=== PATIENT | male | born 1965 | race Caucasian/White ===

== ENCOUNTER → 2016-12-15 | Outpatient (CLI) | payer BC ==
[~2016-12-15] VITALS: Ht 180.3 cm; Wt 113.4 kg
[~2016-12-15] MED LIST: ATOR1TAB19 PO; BUSP10TA2; FLUO20CA8 PO; GLUC1000; GLYB25TA PO; LIDOCAINE 2% INJ 100 MG/5 ML SDV (FOR ANES.) As Ordered ONE; LIPI10TA; NS 1,000 ML IV SCH; PIOG45TA2 PO; PROPOFOL 500 MG/50 ML VIAL As Ordered ONE; PROZ40CA; RISP0.2515
--- NOTE | 2016-12-15 11:18 | ROOR ---
Patient Name: Junior Love Procedure Date: 12/15/2016 10:52 AM Date of : 1965 Age: 51 Room: MARANA02 Gender: Male Note Status: Finalized Procedure: Colonoscopy to Cecum Indications: Screening in patient at increased risk: Colorectal cancer in brother before age 60, Last colonoscopy: 2008 Providers: Wesley Sutton MD Referring MD: Horace Tariq MD Requesting Provider: Medicines: Monitored Anesthesia Care Complications: No immediate complications. Procedure: Pre-Anesthesia Assessment: - The heart rate, respiratory rate, oxygen saturations, blood pressure, adequacy of pulmonary ventilation, and response to care were monitored throughout the procedure. The Colonoscope was introduced through the anus and advanced to the cecum, identified by appendiceal orifice and ileocecal valve. The colonoscopy was performed without difficulty. The patient tolerated the procedure well. The quality of the bowel preparation was fair. Findings: The perianal and digital rectal examinations were normal. Non-bleeding internal hemorrhoids were found during retroflexion. The hemorrhoids were small and Grade I (internal hemorrhoids that do not prolapse). No other significant abnormalities were identified in a careful examination of the remainder of the colon. The exam was otherwise without abnormality on direct and retroflexion views. Impression: - Non-bleeding internal hemorrhoids. - The examination was otherwise normal on direct and retroflexion views. - No specimens collected. - The exam was otherwise normal to the cecum. Recommendation: - Patient has a contact number available for emergencies. The signs and symptoms of potential delayed complications were discussed with the patient. Return to normal activities tomorrow. Written discharge instructions were provided to the patient. - High fiber diet. - Discharge patient to home. - Continue present medications. - Repeat colonoscopy in 5 years for screening purposes. - Return to referring physician. - The findings and recommendations were discussed with the patient's family. Wesley Sutton MD Wesley Sutton MD 12/15/2016 11:18:23 AM This report has been signed electronically. Number of Addenda: 0 Note Initiated On: 12/15/2016 10:52 AM Estimated Blood Loss: Estimated blood loss: none.
[2016-12-15 11:45] VITALS: BP 123/65
== END | disposition home or self-care (01) ==
LOC: M OPP 09:52
PROVIDERS: ATTEND Internal Medicine Gastroenterology
DX: Z12.11 Encounter for screening for malignant neoplasm of colon (principal); Z80.0 Family history of malignant neoplasm of digestive organs; K64.0 First degree hemorrhoids; E11.9 Type 2 diabetes mellitus without complications; F33.9 Major depressive disorder, recurrent, unspecified; Z79.899 Other long term (current) drug therapy; Z79.84 Long term (current) use of oral hypoglycemic drugs

== ENCOUNTER 2018-07-18 15:30 | Emergency (ER) | payer BC ==
[2018-07-18] MEDS: NS 1,000 ML IV (16:34)
[2018-07-18] MEDS: KETOROLAC 30 MG/ML VIAL (J1885) IV (16:34)
[2018-07-18] MEDS: ONDANSETRON 4MG/2ML VIAL (J2405) IV (16:34)
[2018-07-18 16:45] LABS: BASO % 0.2 % (0.0-1.0); EOS % 0.1 % (0.0-3.0); HEMATOCRIT 42.4 % (42.0-52.0); IMMATURE GRANULOCYTE % 0.4 % (0-3.0); LYMPH # 1.1 10^3/uL (1.5-4.5); MEAN CORPUSCULAR HEMOGLOBIN 30.2 pg (27.0-33.0); MEAN CORPUSCULAR VOLUME 91.4 fl (80.0-96.0); MONO # 0.9 10^3/uL (0.0-0.8); MONO % 6.7 % (0.0-5.0); NEUTROPHILS # 11.3 10^3/uL (1.8-7.7); NEUTROPHILS % 84.6 % (36.0-66.0); PLATELET COUNT, AUTOMATED 222 10^3/uL (150-450); RED BLOOD COUNT 4.64 10^6/uL (4.30-6.10); RED CELL DISTRIBUTION WIDTH 13.7 % (11.5-14.5); WHITE BLOOD COUNT 13.3 10^3/uL (4.0-10.0)
[2018-07-18 17:08] LABS: ANION GAP 10 MEQ/L (8-16); BLOOD UREA NITROGEN 19 MG/DL (7-18); C REACTIVE PROTEIN QUANTITATIV 0.37 MG/DL (0.00-0.30); CALCIUM LEVEL 9.3 MG/DL (8.5-10.1); CARBON DIOXIDE LEVEL 25 MEQ/L (21-32); CHLORIDE LEVEL 102 MEQ/L (98-107); CREATININE FOR GFR 1.29 MG/DL (0.70-1.30); GLOMERULAR FILTRATION RATE > 60.0 (>56); GLUCOSE, FASTING 246 MG/DL (70-100); POTASSIUM SERUM 4.5 MEQ/L (3.5-5.1); SODIUM LEVEL 137 MEQ/L (136-145)
[2018-07-18 19:02] LABS: KETONE, URINE AUTO RFX TRACE mg/dL (NEGATIVE); LEUKOCYTE ESTERASE UR AUTO RFX NEGATIVE (NEGATIVE); MUCUS, URINE RFX SMALL (NEGATIVE); NITRITE, URINE AUTO RFX NEGATIVE (NEGATIVE); RBC, URINE AUTO RFX 2 /HPF (0-3); SPECIFIC GRAVITY UR AUTO RFX 1.023 (1.002-1.035); SQUAM EPITHELIAL CELL UR AURFX 0 /HPF (0-6); WBC, URINE AUTO RFX 1 /HPF (0-3)
== END 2018-07-18 19:28 | disposition home or self-care (01) ==
LOC: M ED 15:30
DX: N20.1 Calculus of ureter (principal); N13.30 Unspecified hydronephrosis; R11.10 Vomiting, unspecified; E11.9 Type 2 diabetes mellitus without complications; H54.3 Unqualified visual loss, both eyes; F32.9 Major depressive disorder, single episode, unspecified; Z79.899 Other long term (current) drug therapy; Z79.84 Long term (current) use of oral hypoglycemic drugs
CPT/HCPCS: J2405

== ENCOUNTER → 2021-01-27 | Outpatient (CLI) | payer BC ==
[~2021-01-27] MED LIST changes: +FLOM0.4C39 PO; +FLUO20CA20 PO; -FLUO20CA8 PO; +GLYB2.5T7 PO; -GLYB25TA PO; +HYDR-3715 PO; -LIDOCAINE 2% INJ 100 MG/5 ML SDV (FOR ANES.) As Ordered ONE; +NAPR-837 PO; -NS 1,000 ML IV SCH; +PIOG1TAB55 PO; -PIOG45TA2 PO; -PROPOFOL 500 MG/50 ML VIAL As Ordered ONE; +ZOFR4TAB14 PO
--- NOTE | 2021-01-27 15:53 | REP ---
INDICATION: PAIN COMPARISON: None. TECHNIQUE: AP, lateral, and swimmers views. FINDINGS: Degenerative changes include exaggerated kyphosis, endplate sclerosis, and osteophytosis. Alignment is maintained. No acute fracture/compression injury or subluxation noted. IMPRESSION: Moderate multilevel degenerative spondylosis. <Electronically signed by Brent Faustin > 01/27/21 [id number]
--- NOTE | 2021-01-27 15:55 | REP ---
INDICATION: PAIN COMPARISON: CT dated 07/18/2018 TECHNIQUE: AP, lateral, bilateral oblique, and coned-down views of the lumbar spine. FINDINGS: Osteopenia and degenerative changes are appreciated. Alignment and lordosis maintained. There is a compression deformity involving L2 with approximately 40% loss of superior vertebral body height which appears to be chronic although relatively new as compared to 2018 and correlation is required. No further evidence for acute fracture/compression injury or subluxation noted. IMPRESSION: Compression deformity at L2 relatively new as compared to 2018. Correlation is required. <Electronically signed by Brent Faustin > 01/27/21 [id number]
--- NOTE | 2021-01-27 15:56 | REP ---
INDICATION: PAIN COMPARISON: None. TECHNIQUE: Supine view of the abdomen and pelvis. FINDINGS: Bowel gas pattern is nonspecific and without obstruction or perforation. No organomegaly. No abnormal calcifications. Skeletal structures demonstrate degenerative changes. IMPRESSION: Normal abdominal radiograph. <Electronically signed by Brent Faustin > 01/27/21 [id number]
== END ==
LOC: M WUC 14:07
PROVIDERS: ATTEND Physician Assistant Medical
DX: M51.9 Unspecified thoracic, thoracolumbar and lumbosacral intervertebral disc disorder (principal); R10.9 Unspecified abdominal pain

== ENCOUNTER → 2021-02-10 | Outpatient (CLI) | payer BC ==
[2021-02-10 10:38] LABS: ALBUMIN 3.9 GM/DL (3.2-5.2); ALT/SGPT 35 U/L (12-78); BILIRUBIN,TOTAL 1.2 MG/DL (0.2-1.0); BLOOD UREA NITROGEN 16 MG/DL (7-18); CALCIUM LEVEL 9.4 MG/DL (8.5-10.1); CARBON DIOXIDE LEVEL 30 MEQ/L (21-32); CHLORIDE LEVEL 101 MEQ/L (98-107); CREATININE FOR GFR 0.96 MG/DL (0.70-1.30); GLOMERULAR FILTRATION RATE > 60.0 (>56); GLUCOSE, FASTING 200 MG/DL (70-100); POTASSIUM SERUM 4.2 MEQ/L (3.5-5.1); SODIUM LEVEL 137 MEQ/L (136-145); TOTAL PROTEIN 7.2 GM/DL (6.4-8.2)
[2021-02-10 12:00] LABS: HEMOGLOBIN A1c 8.9 %
== END ==
LOC: M LAB 09:29
PROVIDERS: ATTEND Family Medicine
DX: E11.65 Type 2 diabetes mellitus with hyperglycemia (principal); E07.9 Disorder of thyroid, unspecified; I10 Essential (primary) hypertension

== ENCOUNTER → 2022-12-14 | Outpatient (CLI) | payer BC ==
[~2022-12-14] MED LIST changes: +FLUO-96 PO; -FLUO20CA20 PO
== END ==
LOC: M WUC 13:48
PROVIDERS: ATTEND Physician Assistant
DX: S52.515A Nondisplaced fracture of left radial styloid process, initial encounter for closed fracture (principal); Y99.8 Other external cause status; Y92.89 Other specified places as the place of occurrence of the external cause; Y93.89 Activity, other specified; X58.XXXA Exposure to other specified factors, initial encounter; M79.642 Pain in left hand; M25.532 Pain in left wrist

== ENCOUNTER → 2023-02-18 | Outpatient (CLI) | payer BC, OTHER | LOC: M LABSMTC 08:04 | PROVIDERS: ATTEND Anesthesiology | DX: Z01.812 Encounter for preprocedural laboratory examination (principal); Z20.822 Contact with and (suspected) exposure to COVID-19 ==

== ENCOUNTER 2023-02-23 11:19 | Day surgery (SDC) | payer BC, OTHER ==
[~2023-02-23] VITALS: Ht 182.9 cm; Wt 106.2 kg
[~2023-02-23 11:19] MED LIST changes: +ASPI-226 PO; +BUSP10TA79 PO; +ERGO500029 PO; +LEVO50TA5 PO; +METF10004 PO; +NS 1,000 ML IV ONE; +RISP-8 PO
[2023-02-23] MEDS ORDERED: propofoL 200 MG/20 ML VIAL As Ordered ONE (12:59)
[2023-02-23] MEDS ORDERED: LIDOCAINE 2% 100MG/5ML SDV (FOR ANES.) As Ordered ONE (12:59)
[2023-02-23 13:35] VITALS: BP 125/69
== END 2023-02-23 13:41 | disposition home or self-care (01) ==
LOC: M OPP 11:19
PROVIDERS: ATTEND Internal Medicine Gastroenterology
DX: Z83.71 Family history of colonic polyps (principal); Z80.0 Family history of malignant neoplasm of digestive organs; K64.0 First degree hemorrhoids; K57.30 Diverticulosis of large intestine without perforation or abscess without bleeding; E03.9 Hypothyroidism, unspecified; E78.00 Pure hypercholesterolemia, unspecified; E11.9 Type 2 diabetes mellitus without complications; Z79.02 Long term (current) use of antithrombotics/antiplatelets; Z79.82 Long term (current) use of aspirin; Z79.84 Long term (current) use of oral hypoglycemic drugs; Z79.890 Hormone replacement therapy; Z79.899 Other long term (current) drug therapy; Z80.41 Family history of malignant neoplasm of ovary